=== PATIENT | female | born 1950 | race Caucasian/White ===

== ENCOUNTER 2017-02-19 06:31 | Day surgery (SDC) | payer OTHER ==
[~2017-02-19] VITALS: Ht 162.6 cm; Wt 56.3 kg
[~2017-02-19 06:31] MED LIST: CALC1TAB12 PO; MISC-163; MULTTAB67 PO; OMEGCAP PO; ROSU5 PO; WALKER WHEELS/F1 MIS; WHEEMIS3
[2017-02-19] MEDS ORDERED: IOHEXOL 350 MG/ML 50 ML BTL (for Cath Lab) OTHER ONE (06:32)
[2017-02-19] MEDS ORDERED: NS 1000P @30 MLS/HR (KVO) IV SCH (07:00)
[2017-02-19 07:08] VITALS: BP 128/81; PULSE 64; TEMP 97.7
[2017-02-19] MEDS ORDERED: SODIUM CHLORID 0.9% 500 ML INJ 500 ML ONE (08:02)
[2017-02-19] MEDS ORDERED: HEPARIN-NS/PF INJ 1,000 ML ONE (08:02)
[2017-02-19] MEDS ORDERED: NITROGLYCERIN INJ 5 ML ONE (08:03)
[2017-02-19] MEDS ORDERED: MIDAZOLAM HCL 2 MG/2 ML VIAL ONE ×2 (08:03→09:13)
[2017-02-19] MEDS ORDERED: HEPARIN SODIUM - IV 10,000 UNITS/10 ML VIAL ONE (08:03)
[2017-02-19] MEDS ORDERED: ISOS30TA3 PO (09:25)
[2017-02-19] MEDS ORDERED: MISC INFORMATION XX ONE (09:30)
[2017-02-19] MEDS ORDERED: BACITRACIN OINT 0.9 GM PKT TOP ONE (09:30)
--- NOTE | 2017-02-19 09:33 | CATHPROC ---
[employer] HIS Report Study Information Study Number Admission Scheduled Start Study Start [id number] Feb 19 2017 6:31AM 02/19/2017 Feb 19 2017 8:04AM [place] [facility] Catheterization Admit Source Facility Department Other [facility] Physician and Clinical Staff Initial Lázaro Moreno Data CoordinatorJoyce HooperRN Data Coordinatorfeliz Smith RN, Mor Recorder Genevieve, [place],GERIATRIC SOCIAL WORK PROFESSOR TECH2 Scrub Ginger Hansen,RT(R) (BS) Procedures Performed Procedure Location (Site) Vessel Name Coronary Angiograms LCA Left Coronary Coronary Angiograms RCA Right Coronary Equipment Time Physical Education Instructor Description Size Mfg Part Number Used/Scraped TRANSDUCER, TRUWAVE [id number] 09:06 HOGUE EGNLISH * Used W/STOCKCOCK *[id number] *[id number] *[id number] 09:06 Rebel Monkey INDUSTRIES PACK, CCL CUSTOM * Used *[id number] 09:06 SOAK (Smart Operational Agricultural toolKit) SUPPORT, ARTERIAL ADULT 24579 *[id number] Used [id number] 09:06 Rebel Monkey PACER PEN, SKIN DUAL W/ RULER * Used *[id number] BAND, RADIAL COMPRESSION TR [id number] 09:18 Next 2 Greatness MEDICAL 24CM Used SHORT 24 *[id number] SHEATH, FR6 RADIAL PRELUDE 09:06 Affresol FR 6 [id number] Used EASE 11CM [id number] 09:06 Affresol WIRE, EXCHANGE 260CM 3MMJ 260CM Used *[id number] 09:06 NYCOMED OMNIPAQUE, 350 MG, 150ML 150ML [id number] Used [id number] 09:06 SOTO MEDICAL BLANKET,WARM AIR CCL * Used *[id number] Equipment Model, Serial, Lot Number and Expiration Data Description Model Number Serial Number Lot Number Expiration Date BAND, RADIAL COMPRESSION TR [id number] 10-24-2019 SHORT 24 History: Current Medications Medication Dosage/Unit Route Frequency Last Date/Time Taken CRESTOR FISH OIL History: Allergies Allergy Reaction No Known Allergies Czulcxw-Sod-Dar Reductase Inhibitor History: Risk Factors Family History of Hypertension Dyslipidemia Previous [place] Previous Heart Failure Premature CAD Yes Yes Yes No No Prior Valve Prior PCI Prior CABG Surgery No No No Cerebrovascular Peripheral Artery Chronic Lung On Dialysis Diabetes Diabetes Therapy Disease Disease Disease No No No No Yes Diet History: Symptoms/Diagnosis Selection Items Chest pain History: Stress Tests Stress or Imaging Studies Performed No History: Other Disease Selection Items Cancer Gerd History: Other Current Smoker No Labs Hgb (g/dl) Hct (%) WBC (l/cumm) Platelets (thousands) 11.60-17.00 35.00-51.00 4.00-11.00 150.00-450.00 13.8 42.3 6.4 250 Glucose (mg/dl) BUN (mg/dl) Creatinine (mg/dl) BUN:Creatinine (1:x) 74.00-106.00 7.00-18.00 0.50-1.30 10.00-20.00 93 15 0.7 21.4 Na (meq/l) K (meq/l) Cl (meq/l) CO2 (mmol/L) Ca (mg/dl) 136.00-145.00 3.50-5.10 98.00-107.00 21.00-32.00 8.50-10.10 144 5 100 26 10.3 PT (sec) INR (PTT:PT) 9.80-11.60 0.90-1.10 9.9 0.9 CPK-MB (ng/ML) 0.50-3.60 Not Drawn Medication Medication Total Dose (Bolus/Oral) Medication Total Dosage/Unit 1% XYLOCAINE 20 mL FENTANYL 50 mcg HEPARIN 3000 units NTG (IC) 50 mcg VERSED 2 mg Medications (Bolus/Oral) Medication Time Given Dosage/Unit Administered By Reason VERSED 02/19/2017 8:30:08 AM 1 mg Joyce Moffett 1 mg VERSED given in lab by Joyce Moffett RN in Left Antecubital via Peripheral IV. FENTANYL 02/19/2017 8:31:48 AM 50 mcg Joyce Moffett 50 mcg FENTANYL given in lab by Joyce Moffett RN in Left Antecubital via Peripheral IV. 1% XYLOCAINE 02/19/2017 9:01:31 AM 20 mL Lázaro Hughes 20 mL 1% XYLOCAINE given in lab by Lázaro Hughes in Right Radial via Subcutaneous. NTG (IC) 02/19/2017 9:05:35 AM 50 mcg Lázaro Hughes 50 mcg NTG (IC) given in lab by Láazro Hughes in Right Radial via Intra-coronary. HEPARIN 02/19/2017 9:06:18 AM 3000 units Mor Smith RN 3000 units HEPARIN given in lab by Mor Smith RN in Left Antecubital via Peripheral IV. Ordered by Lázaro Hughes. VERSED 02/19/2017 9:14:38 AM 1 mg Mor Smith RN 1 mg VERSED given in lab by Mor Smith RN in Left Antecubital via Peripheral IV. Medication (Drip) Medication Time Given Dosage/Unit Concentration/Unit Diluent (ml) Solution IV Solutions 02/19/2017 8:28:54 AM 0 mL (IV) 500 NaCl .9 Patient arrived on IV Solutions in Left Antecubital via Peripheral IV. Pump/Drip Flow = 20 ml/hr usin g NaCl .9. Initial Case Assessment Cardiovascular HR Rhythm NIBP Chest Pain 60 sr 118/66 0 Circulatory - Right Pulses Dorsalis Pedis Femoral Radial 2 2 2 Scale (0,1,2,3,4,d) Scale (0,1,2,3,4,d) Neurological State Oriented to time-place- Alert Moves all extremities person Respiration - General Respiration Rate SpO2 (%) (B/min) 16 99 Final Case Assessment Cardiovascular HR Rhythm NIBP Chest Pain 60 sr 95/58 0 Circulatory - Right Pulses Dorsalis Pedis Femoral Radial 2 2 2 Scale (0,1,2,3,4,d) Scale (0,1,2,3,4,d) Neurological State Oriented to time-place- Alert Moves all extremities person Respiration - General Respiration Rate SpO2 (%) (B/min) 11 96 Chronological Log Time Study Chronological Log 8:26:38 Patient arrived via Bed. 8:26:42 Patient Name, D.O.B, / Armband Verified By R.N. 8:26:47 Consent signed by the physician and the patient and verified by the [facility] staff. 8:27:52 Pre-op and post- op instructions given; patient acknowledges understanding of instructions. Vitals capture started with the following parameters, Patient=Adult, Interval=5 min, Initial Pr gcejln=504 mmHg, 8:27:56 Deflation Rate=5 mmHg, Cuff placed on Left Arm 8:28:06 Presedation assessment performed by [facility] RN. 8:28:11 Allens test performed on the right radial and ulnar artery. 8:28:18 Patient has been NPO for More than 6Hrs. 8:28:20 Skin Breakdown-none 8:28:26 BMBP=925/66 mmhg, SpO2=96.0 %, Resp=11 B/min, Pain=0, Michelle=10, Mabry=2 8:28:31 Santino Prominences Protected 8:28:34 A # 20 IV was noted in the Antecubital (left). Grade = patent 8:28:40 MD arrived. 8:28:54 Patient arrived on IV Solutions in Left Antecubital via Peripheral IV. Pump/Drip Flow = 20 m l/hr using NaCl .9. 8:29:29 History and physical on the chart or being dictated. Assessment: Initial Case, HR=60 BPM, Rhythm=sr, LPZC=317/66 mmhg, Chest Pain=0 Right Pulses: Marquise Ped=2, Femoral=2, Radial=2 8:29:32 Neurological: State=Alert, Ox3, SOLOMON Respiration: Resp=16 B/min, SpO2=99 % 8:29:33 Reference ECG taken 8:30:08 1 mg VERSED given in lab by Joyce Moffett RN in Left Antecubital via Peripheral IV. 8:31:48 50 mcg FENTANYL given in lab by Joyce Moffett RN in Left Antecubital via Peripheral IV. 8:33:31 HR=57 bpm, NIBP=97/58 mmhg, SpO2=95.0 %, Resp=13 B/min, Pain=0, Michelle=10, Mabry=2 8:37:25 Right groin and right wrist prepped with 2% chlorhexidine, and draped after a 3 min. waiting time. 8:38:26 HR=56 bpm, ZJEL=633/59 mmhg, SpO2=97 %, Resp=13 B/min, Michelle=10 8:43:27 HR=54 bpm, NIBP=96/60 mmhg, SpO2=96 %, Resp=15 B/min, Pain=0, Michelle=10, Mabry=2 8:44:59 Pressure channel 1 zeroed. 8:48:26 HR=53 bpm, NIBP=96/59 mmhg, SpO2=97 %, Resp=13 B/min, Pain=0, Michelle=10, Mabry=2 8:53:27 HR=55 bpm, NIBP=94/58 mmhg, SpO2=99 %, Resp=13 B/min, Pain=0, Michelle=10, Mabry=2 8:58:26 HR=55 bpm, NIBP=98/60 mmhg, SpO2=99 %, Resp=13 B/min, Pain=0, Michelle=10, Mabry=2 Time Out. Correct patient, correct procedure, correct physician, power injector not used, surgic al team present. Time 9:00:45 Out Concurred by MD and individual staff in procedure. 9:01:28 Case Start 9:01:31 20 mL 1% XYLOCAINE given in lab by Lázaro Hughes in Right Radial via Subcutaneous. 9:03:27 HR=57 bpm, NIBP=98/56 mmhg, SpO2=97 %, Resp=13 B/min 9:04:58 Access site was Radial Artery. A SHEATH, FR6 RADIAL PRELUDE EASE 11CM FR 6 was advanced into the Fem Art (right) using the Perc utaneous 9:05:08 technique. Sheath sutured 9:05:35 50 mcg NTG (IC) given in lab by Lázaro Hughes in Right Radial via Intra-coronary. 9:06:18 3000 units HEPARIN given in lab by Mor Smith RN in Left Antecubital via Peripheral IV. Or dered by Lázaro Hughes. A JR 5.0 INFINITI CATHETER FR 6 was advanced over a wire. OMNIPAQUE, 350 MG, 150ML 150ML was use d for 9:06:52 injections. Recorded Pressure: LV, HR=56, Condition=Condition 1 9:07:39 (Left Ventricle) LV 90/3/9 Recorded Pressure: LV, Ao, HR=55, Condition=Condition 1 9:07:48 (Left Ventricle) LV 88/5/9, (Aorta) Ao 81/52/66 9:08:30 HR=57 bpm, NIBP=80/47 mmhg, SpO2=95.0 %, Resp=10 B/min, Pain=0, Michelle=10, Mabry=2 9:09:06 The RCA was injected and visualized at various angles. OMNIPAQUE, 350 MG, 150ML 150ML used. After removing the current catheter a JL 3.5 INFINITI CATHETER FR 6 was advanced over a WIRE, EX CHANGE 260CM 9:13:08 3MMJ 260CM. 9:14:02 HR=58 bpm, NIBP=94/58 mmhg, SpO2=95 %, Resp=14 B/min 9:14:38 1 mg VERSED given in lab by Mor Smith RN in Left Antecubital via Peripheral IV. 9:16:19 The LCA was injected and visualized at various angles. OMNIPAQUE, 350 MG, 150ML 150ML use d. 9:17:43 Catheter was removed 9:18:00 Case End 9:18:29 HR=63 bpm, NIBP=97/59 mmhg, SpO2=96 %, Resp=18 B/min, Pain=0, Michelle=10, Mabry=2 9:23:30 HR=60 bpm, NIBP=95/58 mmhg, Resp=11 B/min Radial Compression Device Used. 9 mLs of air placed in BAND, RADIAL COMPRESSION TR SHORT 24 24 CM. Affected 9:23:55 hand 96 % O2 saturation. 9:24:16 No case complications noted. 9:24:18 Cine recording checked. 9:24:21 Bedside Report will be given. Assessment: Final Case, HR=60 BPM, Rhythm=sr, NIBP=95/58 mmhg, Chest Pain=0 Right Pulses: Marquise Ped=2, Femoral=2, Radial=2 9:24:28 Neurological: State=Alert, Ox3, SOLOMON Respiration: Resp=11 B/min, SpO2=96 % 9:24:58 Vitals capture stopped. 9:30:07 Patient moved to bed 9:30:15 Patient transported to DOCU End Study - Contrast Media Used In Study Contrast Total Opened (mL) Total Used (mL) Total Wasted (mL) Omnipaque 50 50 0 End Study - Maximum Contrast Load Max Contrast Load (mL) 402.3 End Study - Radiation Exposure Fluoro Time (minutes) 4.5 End Study - Sheaths Sheaths Pulled By Sheath Hold Time (min) Ginger Hansen End Study - Patient Disposition Complications Transferred To Interventional Outcome No Telemetry Bed No attempt made
--- NOTE | 2017-02-19 09:57 | MA ---
cc: JUAN KIM DATE 02/19/2017 PROCEDURE PERFORMED 1. Fluoroscopy with interpretation 2. Coronary angiography 3. Left heart catheterization METHOD The risks, benefits and alternatives discussed with the patient. The patient understood and consented to the procedure. PROCEDURE The patient brought into the catheterization lab, placed on the catheterization table. The right wrist was prepped and draped in a sterile fashion. The right wrist was anesthetized with 2% lidocaine. The right radial artery was cannulated and a 6-Vietnamese 7 cm sheath was placed without difficulty. LEFT HEART CATHETERIZATION Intraventricular hemodynamics measured at 88/5 mmHg. The left ventricular end-diastolic pressure is 9 mmHg. No significant aortic stenosis by transaortic valvular pullback gradient. CORONARY ANGIOGRAPHY 1. Left main coronary is angiographically normal. 2. The left anterior descending coronary artery has mild luminal irregularities in the mid segment. 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 3. The left circumflex is a dominant vessel giving rise to a posterior descending branch. The left circumflex angiographically normal. 4. Right coronary artery is nondominant. There is a separate ostia in the right ventricular branch. There is a small right coronary branch in the AV groove. Both are angiographically normal. CONCLUSIONS 1. 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 2. Normal left-sided filling pressures. PLAN Despite relatively suggestive symptoms, there is no significant obstructive coronary disease. Myocardial bridge may have initiated some of her symptoms. At this point, we will monitor conservatively. I may try nitrate therapy if continues to have progressive symptoms. MD MARIYA Moreno/JANIE /9:27 AM /9:45 AM
== END 2017-02-19 14:36 | disposition home or self-care (01) ==
LOC: HDOC 06:31 → HDIC 06:31 → HDOC 14:36
PROVIDERS: ATTEND Internal Medicine
DX: R07.9 Chest pain, unspecified (principal); Q24.5 Malformation of coronary vessels; E78.5 Hyperlipidemia, unspecified; E11.9 Type 2 diabetes mellitus without complications
CPT/HCPCS: 86850; 86900; 86901; 93458; 99152; 99153; C1769; C1893; J1644; J2250; J3010; J7040; Q9967